=== PATIENT | female | born 1980 | race Caucasian/White ===

== ENCOUNTER → 2016-05-25 | Outpatient (CLI) | payer OTHER, SELFPAY ==
[~2016-05-25] MED LIST: LIDOCAINE 1% MDV 20ML VIAL As Ordered ONE
--- NOTE | 2016-05-25 15:31 | REP ---
Focused bilateral breast sonography: History: Multiple breast cysts seen on recent sonography from May 04, 2016 at [facility]. The patient is referred for ultrasound-guided breast cyst aspiration procedure. Pre-procedure scanning. Findings: The upper outer quadrant is scanned of each breast. Multiple cysts are seen bilaterally. On the right the three largest cysts measure 1.9, 3.2, and 3.1 cm in greatest diameter. These are located at 9 o'clock and 11 o'clock. In the left breast there are multiple simple cysts seen as well. At 2 o'clock, there is a cyst measuring 3.2 cm in greatest diameter and a 3.0 cm cyst. Also at 2 o'clock there are cysts measuring 2.6 and 1.6 cm in greatest diameter. Heterogeneous fibroglandular background echotexture is observed bilaterally. Impression: Multiple bilateral sonographically simple benign-appearing cysts again seen. The findings were discussed with the patient and the pros and cons of the proposed cyst aspiration were reviewed. It was her wish to proceed with ultrasound guided aspiration of the largest cysts in each breast. The largest of these will be targeted for ultrasound directed aspiration. Signed by Chago Berry MD 05/25/2016 04:21 P
--- NOTE | 2016-05-25 17:58 | REP ---
ULTRASOUND GUIDED BILATERAL BREAST CYST ASPIRATION: The procedure was performed under the direct supervision of Dr. Berry. The patient has a history of multiple cysts in the breasts bilaterally. The four largest cysts in the left breast and the three largest cysts in the right breast were chosen for aspiration. The risks and benefits of the procedure were explained to the patient and informed consent was obtained. The left breast was addressed first. The left breast cysts were localized using ultrasound guidance. The skin was prepped and draped in a sterile fashion. 1% lidocaine was used as local anesthetic. Using ultrasound guidance the breast cysts were aspirated using an 18-gauge needle. The cyst in the 1-o'clock position of the left breast yielded 4 mL of low viscosity red-colored fluid. The cyst in the 2-o'clock position of the left breast yielded 13 mL of low viscosity red-colored fluid. The cyst in the more lateral 2-o'clock position of the left breast yielded 2 mL of low viscosity red-colored fluid. The cyst in the more axillary region of the left breast yielded 6 mL of low viscosity red-colored fluid. The right breast cysts were then addressed. The cysts were localized using ultrasound guidance. The skin was prepped and draped in a sterile fashion. 1% lidocaine was used as a local anesthetic. Using ultrasound guidance, all three breast cysts were aspirated using an 18-gauge needle. The cyst in the 11-o'clock position of the right breast yielded 7 mL of low viscosity red-colored fluid. The cyst in the 9-o'clock lateral position of the right breast yielded 12 mL of low viscosity red-colored fluid. The breast cyst in the 9-o'clock medial position of the right breast yielded 2 mL of low viscosity red-colored fluid. The patient tolerated the procedure well and there were no immediate complications. After the appropriate amount of monitored convalescence the patient was discharged from the department. Reviewed by KASSI Garcia 05/26/2016 04:05 PEdited and Signed by Chago Berry MD 05/26/2016 04:33 P
== END | disposition home or self-care (01) ==
LOC: M RADPRO 12:30
PROVIDERS: ATTEND Surgery
DX: N64.89 Other specified disorders of breast (principal)

== ENCOUNTER → 2016-08-04 | Outpatient (REF) | payer OTHER | LOC: M LAB REF 16:37 | PROVIDERS: ATTEND Physician Assistant | DX: R30.0 Dysuria (principal) ==

== ENCOUNTER → 2016-11-23 | Outpatient (CLI) | payer OTHER ==
--- NOTE | 2016-11-23 14:25 | REP ---
BILATERAL BREAST ULTRASOUND: Bilateral breast ultrasound performed. The patient has had prior bilateral cyst aspiration of multiple cysts both in the right and left breasts 05/25/2016. In the right breast between the 9 -o'clock and 12 -o'clock positions, there is dense fibroglandular tissue with multiple cysts. The largest cysts are at the 9 -o'clock position measuring 9 x 9 x 10 mm, at 11 -o'clock position measuring 1.5 x 1.0 x 1.4 cm and 2.0 x 1.0 x 1.2 cm. The left breast was scanned between the 12 -o'clock position and 3 -o'clock position and there is diffuse dense fibroglandular tissue with multiple cysts in this region. The largest are at the 2 -o'clock position measuring 2.3 x 1.1 x 2.0 cm, 1.8 x 0.9 x 2.0 cm and 8 x 5 x 10 mm. IMPRESSION: ACR 2 benign. Multiple bilateral breast cysts noted in the upper outer quadrant of each breast. Signed by Travon Lyman MD 11/23/2016 08:12 P
== END ==
LOC: M RAD 11:33
PROVIDERS: ATTEND Surgery
DX: N60.01 Solitary cyst of right breast (principal); N60.02 Solitary cyst of left breast; N60.31 Fibrosclerosis of right breast; N60.32 Fibrosclerosis of left breast

== ENCOUNTER → 2017-01-14 | Outpatient (CLI) | payer OTHER ==
--- NOTE | 2017-01-14 17:06 | REP ---
BILATERAL BREAST CYST ASPIRATION: The procedure was performed by KASSI Soto under the direct supervision of Dr. Lyman. The procedure along with its risks, benefits, and complications were discussed with the patient prior to the examination. Informed consent was obtained both verbally and written. The patient was identified in the ultrasound suite and placed in a supine position. The right breast was interrogated by ultrasound. An appropriate site was chosen for needle entry and this entry was marked, prepped and draped in the usual sterile fashion. A procedural time out was performed to ensure that the correct patient, site and procedure were being performed. Local infiltrative anesthesia was achieved using 1% Xylocaine. The first cyst was localized and an 18 gauge needle was advanced to it. Approximately 2 mL cloudy green fluid was aspirated. This content was put in Cytolyt and sent to the lab for further evaluation. The second cyst was localized and accessed using a 20 gauge spinal needle. Approximately 5 mL cloudy green fluid was aspirated. This content was put in Cytolyt and sent to the lab for further evaluation. A bandage was placed at the needle entry site. The room was reset and an appropriate site was chosen for needle entry within the left breast and this area was marked, prepped, and draped in the usual sterile fashion. Local infiltrative anesthesia was achieved using 1% Xylocaine. A 20-gauge spinal needle was advanced into the first cyst and 3 mL of cloudy green fluid was aspirated. This was placed in Cytolyt and will be sent to the lab for further evaluation. A 20-gauge spinal needle was also advanced into the second cyst and 4 mL of cloudy green fluid was aspirated. This was also placed in Cytolyt and sent to the lab for further evaluation. The results are pending on all of these. A bandage was placed at the needle entry site in the left breast. The patient tolerated the procedure well and had no immediate complications. Reviewed by KASSI Calhoun 01/14/2017 06:31 PEdited and Signed by Travon Lyman MD 01/17/2017 04:09 P
== END ==
LOC: M RADPRO 08:35
PROVIDERS: ATTEND Surgery
DX: N60.12 Diffuse cystic mastopathy of left breast (principal); N60.11 Diffuse cystic mastopathy of right breast

== ENCOUNTER → 2017-07-18 | Outpatient (CLI) | payer OTHER | LOC: M RAD 10:02 | DX: N60.12 Diffuse cystic mastopathy of left breast (principal) | CPT/HCPCS: 76642 ==

== ENCOUNTER → 2017-08-09 | Outpatient (CLI) | payer OTHER ==
[~2017-08-09] MED LIST changes: +LIDOCAINE 1% MDV 20ML VIAL As Ordered; -LIDOCAINE 1% MDV 20ML VIAL As Ordered ONE
== END ==
LOC: M RADPRO 12:34
DX: N60.11 Diffuse cystic mastopathy of right breast (principal); N60.12 Diffuse cystic mastopathy of left breast
CPT/HCPCS: 10022

== ENCOUNTER → 2018-07-11 | Outpatient (REF) | payer OTHER ==
[2018-07-11 12:42] LABS: INFLUENZA A AMPLIFICATION POSITIVE (NEGATIVE); INFLUENZA B AMPLIFICATION NEGATIVE (NEGATIVE)
== END ==
LOC: M LAB REF 11:55
PROVIDERS: ATTEND Physician Assistant Medical
DX: J11.1 Influenza due to unidentified influenza virus with other respiratory manifestations (principal)

== ENCOUNTER → 2018-08-02 | Outpatient (CLI) | payer OTHER ==
--- NOTE | 2018-08-02 17:15 | REP ---
Bilateral breast ultrasound: History: Diffuse cystic mastopathy. The patient gives a history of multiple benign bilateral breast biopsies and cyst aspirations. The upper outer quadrant of each breast was scanned. The right breast is scanned from 9 o'clock to 12 o'clock. Innumerable cysts are seen within heterogeneous fibroglandular background echotexture. The largest include cysts measured as follows: 1.1 x 0.7 x 0.8, 0.6 x 0.6 x 0.6, 2.0 x 0.9 x 2.2, 1.8 x 1.2 x 1.8, and 1.8 x 0.8 x 1.3 cm. These are distributed from 11 o'clock to 9 o'clock in the upper outer quadrant of the right breast. Several contain septations. None appear sonographically suspicious. The left breast is scanned in the upper outer quadrant as well. Innumerable cysts are seen in the left breast. The largest include cyst measured as follows: 1.0 x 0.7 x 1.0, 3.3 x 1.2 x 3.3, and 2.2 x 0.9 x 2.0 cm. These are located at 12 o'clock and 2 o'clock. No sonographically suspicious finding. Impression: BIRADS category II benign findings. Innumerable bilateral breast cysts. Electronically Signed by Chago Berry MD 08/02/2018 08:30 P
== END ==
LOC: M RAD 13:34
PROVIDERS: ATTEND Surgery
DX: N60.11 Diffuse cystic mastopathy of right breast (principal); N60.12 Diffuse cystic mastopathy of left breast

== ENCOUNTER 2019-11-11 11:30 | Emergency (ER) | payer OTHER | END 2019-11-11 12:45 | disposition home or self-care (01) | LOC: M ED 11:30 | DX: S52.121A Displaced fracture of head of right radius, initial encounter for closed fracture (principal); V93.3 Fall on board watercraft; Y92.9 Unspecified place or not applicable; Y93.9 Activity, unspecified; Y99.9 Unspecified external cause status ==

== ENCOUNTER → 2023-08-04 | Outpatient (REF) | payer BC, OTHER | LOC: M LAB REF 16:10 | PROVIDERS: ATTEND Nurse Practitioner Family | DX: R30.0 Dysuria (principal) ==

== ENCOUNTER → 2024-04-07 | Outpatient (REF) | payer BC | LOC: M LAB REF 18:31 | PROVIDERS: ATTEND Physician Assistant Medical | DX: N39.0 Urinary tract infection, site not specified (principal) ==